=== PATIENT | female | born 1975 | race Two or more races ===

== ENCOUNTER 2024-06-08 12:43 | Emergency (ER) | payer BC, MEDICAID ==
[~2024-06-08] VITALS: Ht 157.5 cm; Wt 106.0 kg
[2024-06-08] MEDS: methylPREDNISolone SOD SUCC 125 MG/2 ML VL IM ONE (13:30)
[2024-06-08] MEDS: cefTRIAXone SOD 1,000 MG VL IM ONE (13:30)
[2024-06-08 13:50] VITALS: BP 118/70; PULSE 77; RESP 18; TEMP 98.5; O2SAT 99
[2024-06-08] MEDS: KETOROLAC TROMETH 60MG/2ML VIAL IM ONE (14:50)
[2024-06-08 15:07] LABS: Rapid Strep A Screen-Throat Positive
[2024-06-08] MEDS ORDERED: LIDO2SOL26 MT (15:13)
[2024-06-08] MEDS ORDERED: NAPR-746 PO (15:13)
[2024-06-08] MEDS ORDERED: PENI500T2 PO (15:13)
== END 2024-06-08 15:23 | disposition home or self-care (01) ==
LOC: EEVIPCON 12:43 → ER 12:43
DX: I82.611 Acute embolism and thrombosis of superficial veins of right upper extremity (principal); J03.00 Acute streptococcal tonsillitis, unspecified; Z90.49 Acquired absence of other specified parts of digestive tract; Z98.890 Other specified postprocedural states; Z79.899 Other long term (current) drug therapy
CPT/HCPCS: 87880; 93971; 96372; 99285; J0696; J1885; J2919

== ENCOUNTER 2025-02-26 23:00 | Emergency (ER) | payer BC, MEDICAID ==
[~2025-02-26] VITALS: Ht 157.5 cm; Wt 101.8 kg
[~2025-02-26 23:00] MED LIST: LIDO2SOL26 MT; NAPR-746 PO; PENI500T2 PO
[2025-02-26] MEDS ORDERED: PRED20TA2 PO (23:41)
[2025-02-26] MEDS ORDERED: IBUP-1456 PO (23:41)
[2025-02-26] MEDS ORDERED: AMOX875T4 PO (23:41)
--- NOTE | 2025-02-26 23:41 | ED.PDOC ---
Eye-HPI HPI Comments 49-year-old female presents to ER with complaints of sore throat x2 days. Patient reports that she has been experiencing sore throat pain, intermittent frontal headache and intermittent fever x 2 days. Reports that she last took [id number] ibuprofen at 5:00 p.m. prior to arrival to ER. Patient presents to ER febrile on arrival at 100.8 F, ambulatory, in no distress. Denies cough, shortness of breath, difficulty swallowing, nausea/vomiting, d izziness or any further symptoms/complaints Chief Complaint: Fever Time Seen by MD: 23:36 Primary Care Provider: UNKNOWN Reviewed Notes: Nurses Notes, Medications, Allergies Allergies: Coded Allergies: NO KNOWN ALLERGIES (Unverified , 06/08/24) Home Meds Active Scripts Ibuprofen (Ibuprofen) 800 Mg Tab, 1 TAB PO TID PRN, #30 TAB 0 Refills Prov:MICHEAL MACDONALD 02/26/25 Prednisone (Prednisone) 20 Mg Tab, 20 MG PO BID for 5 Days, #10 TAB 0 Refills Prov:MICHEAL MACDONALD 02/26/25 Amoxicillin & Pot Clavulanate (Amoxicillin/Potassium Cla) 875 Mg Tab, 1 TAB PO BID for 7 Days, #14 TAB 0 Refills Prov:MICHEAL MACDONALD 02/26/25 Lidocaine HCl (Mouth-Throat) (Lidocaine HCl Viscous) 2 % Lyric, 10 ML MT TID, #100 ML Prov:SWAPNA NYE 06/08/24 Naproxen (Naproxen) 500 Mg Tab, 500 MG PO BID, #30 TAB Prov:SWAPNA NYE 06/08/24 Penicillin V Potassium (Veetids) 500 Mg Tab, 1 TAB PO QID, #28 TAB Prov:SWAPNA NYE 06/08/24 Information Source: Patient Mode of Arrival: Ambulatory Past Medical History PAST MEDICAL HISTORY: Denies Surgical History: Cholecystectomy RECOVERY RN History: No Pertinent RECOVERY RN History Family History Family History: Unknown Social History Smoker: Non-Smoker Alcohol: Denies ETOH Use Drugs: Denies Drug Use Lives In: Home Constitutional: reports: others ( STATED IN HPI) EENTM: reports: others ( STATED IN HPI) Respiratory: denies: cough, hemoptysis, orthopnea, SOB at rest, shortness of breath, SOB with excertion, stridor, wheezing, others Cardiovascular: denies: chest pain, dizzy spells, diaphoresis, Dyspnea on e xertion, edema, irregular heart beat, left arm pain, lightheadedness, palpitations, PND, syncope, others Gastrointestinal: denies: abdomen distended, abdominal pain, blood streaked bowels, constipated, diarrhea, dysphagia, difficulty swallowing, hematemesis, melena, nausea, poor appetite, poor fluid intake, rectal bleeding, rectal pain, vomiting, others Genitourinary: denies: abnormal vagina bleeding, burning, dyspareunia, dysuria, flank pain, frequency, hematuria, incontinence, pain, , vagina discharge, urgency, others Neurological: denies: dizziness, fainting, headache, left sided numbness, left sided weakness, numbness, paresthesia, pre-existing deficit, right sided numbness, right sided weakness, seizure, speech problems, tingling, tremors, weakness, others Musculoskeletal: denies: back pain, gout, joint pain, joint swelling, muscle pain, muscle stiffness, neck pain, others Integumetry: denies: bruises, change in color, change in hair/nails, dryness, laceration, lesions, lumps, rash, wounds, others Allergic/Immunocompromised: denies: Difficulty Healing, Frequent Infections, Hives, Itching, others Hematologic/Lymphatic: denies: anemia, blood clots, easy bleeding, easy bruising, swollen glands, others Endocrine: denies: excessive hunger, excessive sweating, excessive thirst, excessive urination, flushing, intolerance to cold, intolerance to heat, unexplained weight gain, unexplained weight loss, others Psychiatric: denies: anxiety, bipolar disorder, depression, hopeless, panic disorder, schizophrenia, sleepless, suicidal, others Physical Exam General Appearance: No Apparent Distress HEENT: PERRL/EOMI, Pharyngeal Erythema (MODERATE TONSILLAR SWELLING/ERYTHEMA NOTED BILATERALLY WITH WHITE EXUDATES NOTED ON BILATERAL TONSILS. UVULA- NORMAL), TMs Normal Neck: Full Range of Motion, Other (BILATERAL CERVICAL LYMPHADENOPATHY) Respiratory: Chest Non-Tender, Lungs Clear, No Accessory Muscle Use, No Respiratory Distress, Normal Breath Sounds Cardiovascular: No Murmur, No Gallop, Regular Rate/Rhythm Breast Exam: Deferred Gastrointestinal: NOT DONE Genitalia: Deferred Pelvic: Deferred Rectal: Deferred Extremities: Normal capillary refill, Normal range of motion Neurologic: Alert, window unit air conditioning mechanic II-XII nml as Tested, No Motor Deficits, Normal Affect, Normal Mood, No Sensory Deficits Cerebellar Function: Normal Reflexes: Normal Skin: Dry, Normal Color, Warm Peripheral Pulses: 2+ carotid (R), 2+ carotid (L), 2+ Radial (R), 2+ Radial (L), 2+ Brachial (R), 2+ Brachial (L) Lymphatic: Other (BILATERAL CERVICAL LYMPHADENOPATHY) Was a procedure done? Was a procedure done?: No Sedation Sedation?: No EENT DIFF Eye: N/A Sore Throat: Epiglottitis, Mononeucleosis, Peritonsillar Abscess X-Ray, Labs, Meds, VS ROCEPHIN 1 G IM ORDERED SOLU-MEDROL 120 MG IM ORDERED IBUPROFEN 800 MG P.O. ORDERED PATIENT TOLERATING P.O. INTAKE WELL AND NON-TOXIC APPEARING/IN NO DISTRESS DURING ER VISIT/PRIOR TO DISCHARGE ADVISED TO DRINK PLENTY OF FLUIDS ADVISED TO FOLLOW UP WITH PCP IN 1-2 DAYS PATIENT VERBALIZED UNDERSTANDING AND AGREEABLE WITH PLAN OF CARE ADVISED TO RETURN TO ER IMMEDIATELY IF SYMPTOMS WORSEN Time of 1ST Reevaluation: 23:24 Reevaluation 1ST: N/A Patient Education/Counseling: Diagnosis, Treatment, Prognosis, Need For Follow Up Family Education/Counseling: No Family Present SEPSIS Sepsis Screen Physician Orders Methylprednisolone Sod Succ (Solu Medrol (02/26/25 23:45) Ceftriaxone Sodium (Rocephin) (02/26/25 23:45) Ibuprofen Tablet (Motrin Tablet) (02/26/25 23:45) Departure 1 Departure Time of Disposition: 23:40 Impression: Primary Impression: Acute tonsillitis Qualified Codes: J03.90 - Acute tonsillitis, unspecified Disposition: HOME / SELF CARE / HOMELESS Condition: Stable e-Prescriptions Ibuprofen (Ibuprofen) 800 Mg Tab 1 TAB PO TID PRN, #30 TAB 0 Refills Prov: MICHEAL MACDONALD 02/26/25 Prednisone (Prednisone) 20 Mg Tab 20 MG PO BID for 5 Days, #10 TAB 0 Refills Prov: MICHEAL MACDONALD 02/26/25 Amoxicillin & Pot Clavulanate (Amoxicillin/Potassium Cla) 875 Mg Tab 1 TAB PO BID for 7 Days, #14 TAB 0 Refills Prov: MICHEAL MACDONALD 02/26/25 Critical Care Note Critical Care Time?: No Stability Stability form required: No Heart Score Heart Score: Heart Score Response (Comments) Value History N/A 0 EKG N/A 0 Age N/A 0 Risk Factors N/A 0 Troponin N/A 0 Total 0 MICHEAL MACDONALD Feb 26, 2025 23:41
[2025-02-26] MEDS: IBUPROFEN 800 MG TAB PO ONE (23:50)
[2025-02-26] MEDS: cefTRIAXone SOD 1,000 MG VL IM ONE (23:51)
[2025-02-26] MEDS: methylPREDNISolone SOD SUCC 125 MG/2 ML VL IM ONE (23:51)
[2025-02-27] VITALS: BP 126/82; PULSE 115; PULSE 78; RESP 18; TEMP 100.6; O2SAT 100
== END 2025-02-27 00:05 | disposition home or self-care (01) ==
LOC: EEVIPCON 23:00 → ER 23:00
DX: J03.90 Acute tonsillitis, unspecified (principal); Z90.49 Acquired absence of other specified parts of digestive tract; Z79.52 Long term (current) use of systemic steroids; Z79.899 Other long term (current) drug therapy
CPT/HCPCS: 96372; 99284; J0696; J2919